=== PATIENT | female | born 1995 | race African-American/Black ===

== ENCOUNTER 2022-10-18 16:27 | Outpatient (REF) | payer OTHER, SELFPAY ==
[2022-10-18 16:57] LABS: MANUAL DIFF FLAG NO
[2022-10-18 17:10] LABS: Basophils Absolute Auto 0.1 X10*3/uL (0.0-0.2); Basophils Percent Auto 0.9 % (0-2); Eosinophils Absolute Auto 0.2 X10*3/uL (0.0-0.4); Eosinophils Percent Auto 2.5 % (0-4); Hematocrit 27.3 % (37.0-47.0); Hemoglobin 8.1 g/dl (12.0-16.0); Imm Gran Abs Auto 0.02 X10*3/uL (0.00-0.03); Imm Gran Pct Auto 0.3 % (0.0-0.4); Lymphocytes Absolute Auto 3.6 X10*3/uL (1.2-4.9); Lymphocytes Percent Auto 45.1 % (20-40); Mean Corpuscular HGB Conc 29.7 g/dl (31.0-35.0); Mean Corpuscular Hemoglobin 18.2 pg (27.0-33.0); Mean Platelet Volume 9.7 fL (9.4-12.3); Monocytes Absolute Auto 0.9 X10*3/uL (0.1-1.2); Monocytes Percent Auto 11.5 % (2-11); Neutrophils Absolute Auto 3.2 x10*3/uL (2.0-8.3); Neutrophils Percent Auto 39.7 % (45-73); Platelet Count 492 X10*3/uL (160-400); Red Blood Count 4.45 X10*6/uL (4.20-5.50); White Blood Count 7.9 X10*3/uL (4.8-10.8)
[2022-10-18 17:15] LABS: Mean Corpuscular Volume 61.3 fL (80.0-98.0)
[2022-10-19 14:12] LABS: HBS Num1 9.01 mIU/mL (0-7.99)
[2022-10-19 14:33] LABS: Rubella IgG Antibody 1.26 Index
[2022-10-19 15:03] LABS: HBS Num2 8.96 mIU/mL (0-7.99)
[2022-10-19 15:04] LABS: HBS Num3 8.88 mIU/mL (0-7.99); ~Hepatitis B Surface Antibody GRAYZONE (Nonreactive)
[2022-10-20 14:18] LABS: TS Negative Control Passed; TS Panel A 0; TS Panel B 1; TS Positive Control Passed; TSpotTB Negative (Negative)
== END 2022-10-18 16:28 | disposition home or self-care (01) ==
LOC: HO.LAB 16:27
PROVIDERS: PCP Internal Medicine; Visit Provider Internal Medicine
DX: Z00.00 Encounter for general adult medical examination without abnormal findings (principal); Z13.31 Encounter for screening for depression; Z11.1 Encounter for screening for respiratory tuberculosis; F43.0 Acute stress reaction
CPT/HCPCS: 36415; 85025; 86481; 86706; 86735; 86762; 86765; 86787

== ENCOUNTER 2023-05-09 13:10 | Outpatient (REF) | payer OTHER, SELFPAY ==
[2023-05-09 15:37] LABS: CT PCR NOT DETECTED (Not Detect.); NG PCR NOT DETECTED (Not Detect.)
[2023-05-10 05:11] LABS: HIV AB/AG Nonreactive (Nonreactive); HIV Num 1 0.05 S/CO (0.00-0.99)
== END 2023-05-09 13:11 | disposition home or self-care (01) ==
LOC: HO.LAB 13:10
PROVIDERS: PCP Internal Medicine; Visit Provider Internal Medicine
DX: Z11.3 Encounter for screening for infections with a predominantly sexual mode of transmission (principal); Z11.4 Encounter for screening for human immunodeficiency virus [HIV]; Z20.6 Contact with and (suspected) exposure to human immunodeficiency virus [HIV]
CPT/HCPCS: 0353U; 87389